=== PATIENT | female | born 1945 | race American Indian/Alaskan Native ===

== ENCOUNTER 2020-04-25 14:38 | Observation (INO) | payer MEDICARE ==
--- NOTE | 2020-04-25 15:00 | Event Note ---
ED Screening Note Date of service: 04/25/20 Time: 14:56 ED Screening Note: AMS and difficulty with speech x 9 am symptoms have resolved since +left sided headache hx of DM2 and HTN normal coordination and rhomberg on exam This initial assessment/diagnostic orders/clinical plan/treatment(s) is/are subject to change based on patients health status, clinical progression and re- assessment by fellow clinical providers in the ED. Further treatment and workup at subsequent clinical providers discretion. Patient/guardian urged not to elope from the ED as their condition may be serious if not clinically assessed and managed. Initial orders include: labs CT
[2020-04-25 15:44] LABS: Bilirubin,Urine NEG (Negative); Blood,Urine NEG (Negative); Color,Urine Straw (Yellow); Protein,Urine <15 mg/dL mg/dL (Negative); Urobilinogen,Urine < 2.0 mg/dL (<2.0); WBC,Urine < 1.0 /HPF (0.0-6.0)
[2020-04-25 15:46] LABS: Basophils # (Auto) 0.1 K/mm3 (0.0-0.1); Basophils % (Auto) 1.1 % (0.0-1.8); Eosinophils # (Auto) 0.1 K/mm3 (0.0-0.4); Eosinophils % (Auto) 2.1 % (0.0-4.3); Hematocrit 40.1 % (30.3-42.9); Lymphocytes # (Auto) 2.5 K/mm3 (1.2-5.4); Lymphocytes % (Auto) 37.7 % (13.4-35.0); Mean Corpuscular HGB Conc 32 % (30-34); Mean Corpuscular Volume 85 fl (79-97); Monocytes # (Auto) 0.5 K/mm3 (0.0-0.8); Monocytes % (Auto) 6.9 % (0.0-7.3); Platelet Count 189 K/mm3 (140-440); Red Blood Count 4.74 M/mm3 (3.65-5.03); Red Cell Distribution Width 15.4 % (13.2-15.2)
[2020-04-25 15:58] LABS: Alanine Aminotransferase 30 units/L (7-56); Albumin 4.8 g/dL (3.9-5); BUN/Creatinine Ratio 14; Blood Urea Nitrogen 11 mg/dL (7-17); Calcium 10.3 mg/dL (8.4-10.2); Hemolysis Index 15
[2020-04-25 16:10] LABS: INR 0.89 (0.87-1.13)
[2020-04-25 16:11] LABS: Partial Thromboplastin Time 27.7 Sec. (24.2-36.6)
--- NOTE | 2020-04-25 16:16 | Cat Scan Report ---
CT HEAD WITHOUT CONTRAST INDICATION : difficulty w/ speech and AMS x 9am, now resolved. TECHNIQUE: Axial imaging performed from the skull apex through the skull base without the use of con trast. Sagittal and coronal reformatted images. All CT scans at this location are performed using C T dose reduction for ALARA by means of automated exposure control. COMPARISON: None FINDINGS: Parenchyma: No acute intracranial hemorrhage or parenchymal abnormality. Mild cortical volume loss a nd mild chronic microangiopathy in the white matter are noted. No evidence for mass lesion or chronic infarct or extra-axial fluid collection. Ventricles: Ventricles are normal in size and appear symmetric. Bones: No acute osseous abnormality. Sinuses: Sinuses and mastoid air cells are clear. Soft tissues: Soft tissues including the orbits appear normal. IMPRESSION: No acute intracranial abnormality is appreciated. Age appropriate volume loss and chronic white matter changes. Signer Name: Jona Mcmanus Jr, MD Signed: 04/25/2020 4:11 PM Workstation Name: [id number]
--- NOTE | 2020-04-25 17:05 | Emergency Department Report ---
ED General Adult HPI - General Chief complaint: Neuro Symptoms/Deficit Stated complaint: ALTER MENTAL STATUS Time Seen by Provider: 04/25/20 14:55 Source: patient Mode of arrival: Ambulatory Limitations: No Limitations - History of Present Illness Initial comments: Patient presents to the emergency department with a chief complaint of difficulty with speaking this morning. Patient states that approximately 9:30 AM this morning she was talking to her daughter when she began to have slurred speech and then difficulty expressing her words. Patient denies any weakness with the symptoms as stated the last for approximately 15 minutes. Patient has a history of diabetes and hypertension. Patient denies chest pain, shortness of breath, or abdominal pain. -: Sudden Severity scale (0 -10): 0 Consistency: now resolved Improves with: none Worsens with: none Associated Symptoms: denies other symptoms Treatments Prior to Arrival: none - Related Data Allergies Allergy/AdvReac Type Severity Reaction Status Date / Time No Known Allergies Allergy Unverified 04/25/20 14:56 ED Review of Systems ROS: Stated complaint: ALTER MENTAL STATUS Other details as noted in HPI Constitutional: denies: chills, fever Eyes: denies: eye pain, eye discharge, vision change ENT: denies: ear pain, throat pain Respiratory: denies: cough, shortness of breath, wheezing Cardiovascular: denies: chest pain, palpitations Endocrine: no symptoms reported Gastrointestinal: denies: abdominal pain, nausea, diarrhea Genitourinary: denies: urgency, dysuria, discharge Musculoskeletal: denies: back pain, joint swelling, arthralgia Skin: denies: rash, lesions Neurological: denies: headache, weakness, paresthesias Psychiatric: denies: anxiety, depression Hematological/Lymphatic: denies: easy bleeding, easy bruising ED Past Medical Hx - Past Medical History Previous Medical History?: Yes Hx Hypertension: Yes Hx Diabetes: Yes - Surgical History Past Surgical History?: No - Social History Smoking Status: Never Smoker ED Physical Exam - General Limitations: No Limitations General appearance: alert, in no apparent distress - Head Head exam: Present: atraumatic, normocephalic - Eye Eye exam: Present: normal appearance, PERRL, EOMI - ENT ENT exam: Present: mucous membranes moist - Neck Neck exam: Present: normal inspection - Respiratory Respiratory exam: Present: normal lung sounds bilaterally. Absent: respiratory distress - Cardiovascular Cardiovascular Exam: Present: regular rate, normal rhythm. Absent: systolic murmur, diastolic murmur, rubs, gallop - GI/Abdominal GI/Abdominal exam: Present: soft, normal bowel sounds. Absent: distended, tenderness - Extremities Exam Extremities exam: Present: normal inspection - Back Exam Back exam: Present: normal inspection - Neurological Exam Neurological exam: Present: alert, oriented X3, CN II-XII intact. Absent: motor sensory deficit - Psychiatric Psychiatric exam: Present: normal affect, normal mood - Skin Skin exam: Present: warm, dry, intact, normal color. Absent: rash ED Course Vital Signs 04/25/20 04/25/20 04/25/20 14:58 15:30 16:21 Temperature 98.3 F Pulse Rate 79 72 Respiratory 18 16 Rate Blood Pressure 171/96 158/85 158/85 O2 Sat by Pulse 98 96 97 Oximetry ED Medical Decision Making - Lab Data Result diagrams: 04/25/20 15:15 04/25/20 15:15 Lab Results 04/25/20 04/25/20 04/25/20 Range/Units 15:15 15:15 15:43 WBC 6.5 (4.5-11.0) K/mm3 RBC 4.74 (3.65-5.03) M/mm3 Hgb 13.0 (10.1-14.3) gm/dl Hct 40.1 (30.3-42.9) % MCV 85 (79-97) fl MCH 27 L (28-32) pg MCHC 32 (30-34) % RDW 15.4 H (13.2-15.2) % Plt Count 189 (140-440) K/mm3 Lymph % (Auto) 37.7 H (13.4-35.0) % [place] % (Auto) 6.9 (0.0-7.3) % Eos % (Auto) 2.1 (0.0-4.3) % Baso % (Auto) 1.1 (0.0-1.8) % Lymph # (Auto) 2.5 (1.2-5.4) K/mm3 [place] # (Auto) 0.5 (0.0-0.8) K/mm3 Eos # (Auto) 0.1 (0.0-0.4) K/mm3 Baso # (Auto) 0.1 (0.0-0.1) K/mm3 Seg Neutrophils % 52.2 (40.0-70.0) % Seg Neutrophils # 3.4 (1.8-7.7) K/mm3 PT 12.2 (12.2-14.9) Sec. INR 0.89 (0.87-1.13) APTT 27.7 (24.2-36.6) Sec. Sodium 139 (137-145) mmol/L Potassium 4.3 (3.6-5.0) mmol/L Chloride 98.8 (98-107) mmol/L Carbon Dioxide 25 (22-30) mmol/L Anion Gap 20 mmol/L BUN 11 (7-17) mg/dL Creatinine 0.8 (0.6-1.2) mg/dL Estimated GFR > 60 ml/min BUN/Creatinine Ratio 14 % Glucose 115 H (65-100) mg/dL Calcium 10.3 H (8.4-10.2) mg/dL Total Bilirubin 0.50 (0.1-1.2) mg/dL AST 24 (5-40) units/L ALT 30 (7-56) units/L Alkaline Phosphatase 73 (35-129) units/L Troponin T < 0.010 (0.00-0.029) ng/mL Total Protein 8.2 (6.3-8.2) g/dL Albumin 4.8 (3.9-5) g/dL Albumin/Globulin Ratio 1.4 % Urine Color (Yellow) Urine Turbidity (Clear) Urine pH (5.0-7.0) Ur Specific [place] (1.003-1.030) Urine Protein (Negative) mg/dL Urine Glucose (UA) (Negative) mg/dL Urine Ketones (Negative) mg/dL Urine Blood (Negative) Urine Nitrite (Negative) Urine Bilirubin (Negative) Urine Urobilinogen (<2.0) mg/dL Ur Leukocyte Esterase (Negative) Urine WBC (Auto) (0.0-6.0) /HPF Urine RBC (Auto) (0.0-6.0) /HPF U Epithel Cells (Auto) (0-13.0) /HPF 10/20/20 Range/Units Unknown WBC (4.5-11.0) K/mm3 RBC (3.65-5.03) M/mm3 Hgb (10.1-14.3) gm/dl Hct (30.3-42.9) % MCV (79-97) fl MCH (28-32) pg MCHC (30-34) % RDW (13.2-15.2) % Plt Count (140-440) K/mm3 Lymph % (Auto) (13.4-35.0) % [place] % (Auto) (0.0-7.3) % Eos % (Auto) (0.0-4.3) % Baso % (Auto) (0.0-1.8) % Lymph # (Auto) (1.2-5.4) K/mm3 [place] # (Auto) (0.0-0.8) K/mm3 Eos # (Auto) (0.0-0.4) K/mm3 Baso # (Auto) (0.0-0.1) K/mm3 Seg Neutrophils % (40.0-70.0) % Seg Neutrophils # (1.8-7.7) K/mm3 PT (12.2-14.9) Sec. INR (0.87-1.13) APTT (24.2-36.6) Sec. Sodium (137-145) mmol/L Potassium (3.6-5.0) mmol/L Chloride (98-107) mmol/L Carbon Dioxide (22-30) mmol/L Anion Gap mmol/L BUN (7-17) mg/dL Creatinine (0.6-1.2) mg/dL Estimated GFR ml/min BUN/Creatinine Ratio % Glucose (65-100) mg/dL Calcium (8.4-10.2) mg/dL Total Bilirubin (0.1-1.2) mg/dL AST (5-40) units/L ALT (7-56) units/L Alkaline Phosphatase (35-129) units/L Troponin T (0.00-0.029) ng/mL Total Protein (6.3-8.2) g/dL Albumin (3.9-5) g/dL Albumin/Globulin Ratio % Urine Color Straw (Yellow) Urine Turbidity Clear (Clear) Urine pH 8.0 H (5.0-7.0) Ur Specific [place] 1.005 (1.003-1.030) Urine Protein <15 mg/dl (Negative) mg/dL Urine Glucose (UA) Neg (Negative) mg/dL Urine Ketones Neg (Negative) mg/dL Urine Blood Neg (Negative) Urine Nitrite Neg (Negative) Urine Bilirubin Neg (Negative) Urine Urobilinogen < 2.0 (<2.0) mg/dL Ur Leukocyte Esterase Neg (Negative) Urine WBC (Auto) < 1.0 (0.0-6.0) /HPF Urine RBC (Auto) 1.0 (0.0-6.0) /HPF U Epithel Cells (Auto) < 1.0 (0-13.0) /HPF - EKG Data -: EKG Interpreted by Me EKG shows normal: sinus rhythm Rate: normal - Radiology Data Radiology results: image reviewed - Medical Decision Making Results discussed with patient Critical care attestation.: If time is entered above; I have spent that time in minutes in the direct care of this critically ill patient, excluding procedure time. ED Disposition Clinical Impression: Aphasia, Slurred speech Disposition: DC-01 TO HOME OR SELFCARE Is pt being admited?: Yes Does the pt Need Aspirin: Yes Condition: Fair - Assessment Assessment Interval: Baseline - Level of Consciousness 1a. Level of Consciousness: alert/keenly responsive - LOC Questions 1b. LOC Questions: answers both correctly - LOC Command 1c. LOC Commands: performs tasks correctly - Best Gaze 2. Best Gaze: normal - Visual 3. Visual: no visual loss - Facial Palsy 4. Facial Palsy: normal symmetrical movement - Motor Arm 5a. Motor Arm Left: no drift 5b. Motor Arm Right: no drift - Motor Leg 6a. Motor Leg Left: no drift 6b. Motor Leg Right: no drift - Limb Ataxia 7. Limb Ataxia: absent - Sensory 8. Sensory: normal - Best Language 9. Best Language: no aphasia - Dysarthria 10. Dysarthria: normal - Extinction and Inattention 11. Extinction/Inattention: no abnormality - Scoring Total Score: 0 Stroke Severity: No Stroke Symptoms
[2020-04-25] MEDS ORDERED: ASPIRIN 81 MG TAB CHEW PO ONE (17:15)
[2020-04-25] MEDS ORDERED: ASPIRIN 81 MG TAB CHEW ONE (17:58)
[2020-04-25] MEDS ORDERED: ACETAMINOPHEN 325 MG TAB PO PRN (21:18)
[2020-04-25] MEDS ORDERED: oxyCODONE /ACETAMINOPHEN 5-325MG TAB PO PRN (21:18)
[2020-04-25] MEDS ORDERED: ONDANSETRON 4 MG/2 ML INJ IV PRN (21:18)
[2020-04-25] MEDS ORDERED: HYDROmorphone 1 MG/1 ML INJ IV PRN (21:18)
--- NOTE | 2020-04-25 21:18 | History and Physical Report ---
History of Present Illness Date of examination: 04/25/20 Date of admission: 04/25/20 17:16 Chief complaint: Slurred speech and near aphasia for 15 minutes which has resolved History of present illness: 74-year-old female with history of hypertension and diabetes comes in for difficulty speaking and near aphasia around 9:30 AM. Resolved spontaneously. Patient was no weakness in upper or lower extremities. Never had similar symptoms in the past. Patient is compliant with her blood pressure and diabetes medications. Slurred speech lasted about 15 minutes. No weakness or syncope. No fever or chills. No exposure to coronavirus. No exacerbating or relieving factors. - Past Medical History Previous Medical History?: Yes --Hypertension: Yes --Diabetes: Yes - Surgical History Past Surgical History?: No - Social History Smoking Status: Never Smoker Review of Systems ROS: Stated complaint: ALTER MENTAL STATUS Other details as noted in HPI Constitutional: denies: chills, fever Eyes: denies: eye pain, eye discharge, vision change ENT: denies: ear pain, throat pain Respiratory: denies: cough, shortness of breath, wheezing Cardiovascular: denies: chest pain, palpitations Endocrine: no symptoms reported Gastrointestinal: denies: abdominal pain, nausea, diarrhea Genitourinary: denies: urgency, dysuria, discharge Musculoskeletal: denies: back pain, joint swelling, arthralgia Skin: denies: rash, lesions Neurological: denies: headache, weakness, paresthesias Psychiatric: denies: anxiety, depression Hematological/Lymphatic: denies: easy bleeding, easy bruising Medications and Allergies Allergies Allergy/AdvReac Type Severity Reaction Status Date / Time No Known Allergies Allergy Unverified 04/25/20 14:56 Exam - Constitutional Vitals: Temp Pulse Resp BP Pulse Ox 98.3 F 84 20 162/91 93 04/25/20 14:58 04/25/20 19:00 04/25/20 19:00 04/25/20 19:00 04/25/20 19:00 General appearance: Present: no acute distress, well-nourished - EENT Eyes: Present: PERRL ENT: hearing intact, clear oral mucosa - Neck Neck: Present: supple, normal ROM - Respiratory Respiratory effort: normal Respiratory: bilateral: CTA - Cardiovascular Heart rate: 78 Rhythm: regular Heart Sounds: Present: S1 & S2. Absent: rub, click - Extremities Extremities: pulses symmetrical, No edema Peripheral Pulses: within normal limits - Abdominal General gastrointestinal: Present: soft, non-tender, non-distended, normal bowel sounds Female genitourinary: Present: normal - Rectal Rectal Exam: deferred - Integumentary Integumentary: Present: clear, warm, dry - Musculoskeletal Musculoskeletal: gait normal, strength equal bilaterally - Psychiatric Psychiatric: appropriate mood/affect, intact judgment & insight - Neurologic Neurologic: CNII-XII intact, moves all extremities - Allied Health Allied health notes reviewed: nursing, case management HEART Score - HEART Score History: Moderately suspicious Age: > 65 Risk factors: 1-2 risk factors Troponin: Troponin T < 0.010 ng/mL (0.00-0.029) 04/25/20 15:15 Troponin: < normal limit - Critical Actions Critical Actions: 4-6 pts:12-16.6% risk of adverse cardiac event. Should be admitted Results - Labs CBC & Chem 7: 04/25/20 15:15 04/25/20 15:15 Labs: Laboratory Last Values WBC 6.5 K/mm3 (4.5-11.0) 04/25/20 15:15 RBC 4.74 M/mm3 (3.65-5.03) 04/25/20 15:15 Hgb 13.0 gm/dl (10.1-14.3) 04/25/20 15:15 Hct 40.1 % (30.3-42.9) 04/25/20 15:15 MCV 85 fl (79-97) 04/25/20 15:15 MCH 27 pg (28-32) L 04/25/20 15:15 MCHC 32 % (30-34) 04/25/20 15:15 RDW 15.4 % (13.2-15.2) H 04/25/20 15:15 Plt Count 189 K/mm3 (140-440) 04/25/20 15:15 Lymph % (Auto) 37.7 % (13.4-35.0) H 04/25/20 15:15 [place] % (Auto) 6.9 % (0.0-7.3) 04/25/20 15:15 Eos % (Auto) 2.1 % (0.0-4.3) 04/25/20 15:15 Baso % (Auto) 1.1 % (0.0-1.8) 04/25/20 15:15 Lymph # (Auto) 2.5 K/mm3 (1.2-5.4) 04/25/20 15:15 [place] # (Auto) 0.5 K/mm3 (0.0-0.8) 04/25/20 15:15 Eos # (Auto) 0.1 K/mm3 (0.0-0.4) 04/25/20 15:15 Baso # (Auto) 0.1 K/mm3 (0.0-0.1) 04/25/20 15:15 Seg Neutrophils % 52.2 % (40.0-70.0) 04/25/20 15:15 Seg Neutrophils # 3.4 K/mm3 (1.8-7.7) 04/25/20 15:15 PT 12.2 Sec. (12.2-14.9) 04/25/20 15:43 INR 0.89 (0.87-1.13) 04/25/20 15:43 APTT 27.7 Sec. (24.2-36.6) 04/25/20 15:43 Sodium 139 mmol/L (137-145) 04/25/20 15:15 Potassium 4.3 mmol/L (3.6-5.0) 04/25/20 15:15 Chloride 98.8 mmol/L (98-107) 04/25/20 15:15 Carbon Dioxide 25 mmol/L (22-30) 04/25/20 15:15 Anion Gap 20 mmol/L 04/25/20 15:15 BUN 11 mg/dL (7-17) 04/25/20 15:15 Creatinine 0.8 mg/dL (0.6-1.2) 04/25/20 15:15 Estimated GFR > 60 ml/min 04/25/20 15:15 BUN/Creatinine Ratio 14 % 04/25/20 15:15 Glucose 115 mg/dL (65-100) H 04/25/20 15:15 Calcium 10.3 mg/dL (8.4-10.2) H 04/25/20 15:15 Total Bilirubin 0.50 mg/dL (0.1-1.2) 04/25/20 15:15 AST 24 units/L (5-40) 04/25/20 15:15 ALT 30 units/L (7-56) 04/25/20 15:15 Alkaline Phosphatase 73 units/L (35-129) 04/25/20 15:15 Troponin T < 0.010 ng/mL (0.00-0.029) 04/25/20 15:15 Total Protein 8.2 g/dL (6.3-8.2) 04/25/20 15:15 Albumin 4.8 g/dL (3.9-5) 04/25/20 15:15 Albumin/Globulin Ratio 1.4 % 04/25/20 15:15 Urine Color Straw (Yellow) 04/25/20 Unknown Urine Turbidity Clear (Clear) 04/25/20 Unknown Urine pH 8.0 (5.0-7.0) H 04/25/20 Unknown Ur Specific [place] 1.005 (1.003-1.030) 04/25/20 Unknown Urine Protein <15 mg/dl mg/dL (Negative) 04/25/20 Unknown Urine Glucose (UA) Neg mg/dL (Negative) 04/25/20 Unknown Urine Ketones Neg mg/dL (Negative) 04/25/20 Unknown Urine Blood Neg (Negative) 04/25/20 Unknown Urine Nitrite Neg (Negative) 04/25/20 Unknown Urine Bilirubin Neg (Negative) 04/25/20 Unknown Urine Urobilinogen < 2.0 mg/dL (<2.0) 04/25/20 Unknown Ur Leukocyte Esterase Neg (Negative) 04/25/20 Unknown Urine WBC (Auto) < 1.0 /HPF (0.0-6.0) 04/25/20 Unknown Urine RBC (Auto) 1.0 /HPF (0.0-6.0) 04/25/20 Unknown U Epithel Cells (Auto) < 1.0 /HPF (0-13.0) 04/25/20 Unknown Short CBC 04/25/20 Range/Units 15:15 WBC 6.5 (4.5-11.0) K/mm3 Hgb 13.0 (10.1-14.3) gm/dl Hct 40.1 (30.3-42.9) % Plt Count 189 (140-440) K/mm3 BMP 04/25/20 15:15 Sodium 139 Potassium 4.3 Chloride 98.8 Carbon Dioxide 25 BUN 11 Creatinine 0.8 Glucose 115 H Calcium 10.3 H Cardiac Enzymes 04/25/20 Range/Units 15:15 Troponin T < 0.010 (0.00-0.029) ng/mL Liver Function 04/25/20 Range/Units 15:15 Total Bilirubin 0.50 (0.1-1.2) mg/dL AST 24 (5-40) units/L ALT 30 (7-56) units/L Alkaline Phosphatase 73 (35-129) units/L Albumin 4.8 (3.9-5) g/dL Urine 04/25/20 Range/Units Unknown Urine Color Straw (Yellow) Urine pH 8.0 H (5.0-7.0) Ur Specific [place] 1.005 (1.003-1.030) Urine Protein <15 mg/dl (Negative) mg/dL Urine Glucose (UA) Neg (Negative) mg/dL - Imaging and Cardiology EKG: report reviewed CT Scan - head: report reviewed [place]/IV: IV Catheter Type [Right INT / Saline Lock Forearm] Assessment and Plan Advance Directives: Yes - Patient Problems (1) TIA (transient ischemic attack) Current Visit: Yes Status: Acute Plan to address problem: Classic history for TIA TIA work-up including MRI and carotid duplex scan and echocardiogram Neurology consult (2) Hypertension Current Visit: Yes Status: Chronic Qualifiers: Hypertension type: essential hypertension Qualified Code(s): I10 - Essential (primary) hypertension Plan to address problem: Patient's home medications are on the chart We will add antihypertensives as necessary (3) T2DM (type 2 diabetes mellitus) Current Visit: Yes Status: Chronic 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
[2020-04-25] MEDS ORDERED: SODIUM CHLORIDE 0.9% 1000 ML 1,000 ML IV SCH (21:30)
[2020-04-25] MEDS ORDERED: ASPIRIN EC 81 MG TAB PO SCH (22:00)
[2020-04-25] MEDS: CLOPIDOGREL 75 MG TAB PO SCH (22:55)
[2020-04-25] MEDS: FAMOTIDINE 20 MG TAB PO SCH (22:56)
[2020-04-25] MEDS: HEPARIN 5,000 UNIT/1 ML VIAL SUB-Q SCH (22:56)
[2020-04-25] MEDS: VALSARTAN 160MG TAB PO SCH (23:06)
[2020-04-26] MEDS ORDERED: INSULIN REGULAR, HUMAN 100 UNIT/ML 3ML VIAL SUB-Q SCH (01:15)
[2020-04-26 07:36] LABS: Chol/HDL Ratio 2.78 %
[2020-04-26] MEDS ORDERED: metFORMIN XR 500MG TAB PO SCH (08:00)
[2020-04-26] MEDS: INSULIN LISPRO 100 UNIT/ML VIAL 3 mL SUB-Q SCH ×3 (08:00→14:02)
--- NOTE | 2020-04-26 09:04 | Consultation ---
History of Present Illness Consult date: 04/26/20 Requesting physician: YEYO RUIZ Reason for Consult: TIA Chief complaint: Difficulty with speech transiently History of present illness: 74 yo female with htn, dm, lumbago, who presented with a transient 15-minute episode of difficulty getting the words out and with slurred speech. Currently, she is at her baseline neurologically. Notes a slight headache at the left frontotemporal region for the last few days that has resolved now. Notes she is visiting from out of town. Past History Past Medical History: diabetes, hypertension Medications and Allergies Allergies Allergy/AdvReac Type Severity Reaction Status Date / Time No Known Allergies Allergy Unverified 04/25/20 14:56 Active Meds: Active Medications Acetaminophen (Tylenol) 650 mg PO Q4H PRN PRN Reason: Pain MILD(1-3)/Fever >100.5/SHERIFF Aspirin (Halfprin Ec) 81 mg PO QDAY [facility] Last Admin: 04/25/20 22:55 Dose: 81 mg Documented by: Atorvastatin Calcium (Lipitor) 40 mg PO QHS [facility] Last Admin: 04/25/20 22:55 Dose: 40 mg Documented by: Clopidogrel Bisulfate (Plavix) 75 mg PO QDAY [facility] Last Admin: 04/25/20 22:55 Dose: 75 mg Documented by: Famotidine (Pepcid) 20 mg PO BID [facility] Last Admin: 04/25/20 22:56 Dose: 20 mg Documented by: Heparin Sodium (Porcine) (Heparin) 5,000 unit SUB-Q Q12HR [facility] Last Admin: 04/25/20 22:56 Dose: 5,000 unit Documented by: Hydromorphone HCl (Dilaudid) 0.5 mg IV Q3H PRN PRN Reason: Pain , Severe (7-10) Sodium Chloride (Nacl 0.9% 1000 Ml) 1,000 mls @ 75 mls/hr IV DIRECT [facility] Last Admin: 04/25/20 23:17 Dose: 75 mls/hr Documented by: Insulin Human Lispro (Humalog) 0 unit SUB-Q ACHS [facility]; Protocol Last Admin: 04/26/20 08:00 Dose: Not Given Documented by: Metformin HCl (Glucophage Xr) 1,000 mg PO QDDIAB [facility] Last Admin: 04/26/20 08:41 Dose: 1,000 mg Documented by: Ondansetron HCl (Zofran) 4 mg IV Q8H PRN PRN Reason: Nausea And Vomiting Oxycodone/Acetaminophen (Percocet 5/325) 1 tab PO Q6H PRN PRN Reason: Pain, Moderate (4-6) Sodium Chloride (Sodium Chloride Flush Syringe 10 Ml) 10 ml IV BID [facility] Last Admin: 04/25/20 22:57 Dose: 10 ml Documented by: Sodium Chloride (Sodium Chloride Flush Syringe 10 Ml) 10 ml IV PRN PRN PRN Reason: LINE FLUSH Valsartan (Diovan) 160 mg PO DAILY [facility] Last Admin: 04/25/20 23:06 Dose: 160 mg Documented by: Review of Systems All systems: negative (as per HPI;) Physical Examination - Vital Signs Vital Signs: Vital Signs Temp Pulse Resp BP Pulse Ox 98.3 F 79 18 171/96 98 04/25/20 14:58 04/25/20 14:58 04/25/20 14:58 04/25/20 14:58 04/25/20 14:58 - Additional Exam Additional Exam: Gen: nad, well-nourished; Head: normocephalic; Eyes: no gaze deviation; no ptosis; ENT: normal vocalization; CVS: warm and well-perfused; Pulm: no respiratory distress;; GI: non-distended, protuberant; Ext: no cyanosis at distal extremities; Skin: no acute rash at distal extremities; Heme: no pathologic ecchymosis at distal extremities; Neuro: alert, oriented to name, age, month, year, surroundings, no dysarthria, no aphasia, CN 2 - PERRL, visual cha intact, CN 3, 4, 6 - EOMI, CN 5 - facial sensation symmetric to light touch, CN 7 - facial movement symmetric, CN 8 - hearing grossly intact, CN 9, 10 - uvula midline, CN 11 - shrug symmetric, CN 12 - tongue midline; Motor - at least 4+/5 in all exts except 4/5 at distal LLE; Sensory - light touch symmetric, Cerebellar - fnf /hts intact, Gait - deferred; NIHSS (1a.) Level of Consciousness:0 (1b.) LOC Questions:0 (1c.) LOC Commands:0 (2.) Best Gaze: (3.) Visual:0 (4.) Facial Palsy:0 (5a.) Motor Arm, Left:0 (5b.) Motor Arm, Right:0 (6a.) Motor Leg, Left:1 (6b.) Motor Leg, Right:0 (7.) Limb Ataxia:0 (8.) Sensory:0 (9.) Best Language:0 (10.) Dysarthria:0 (11.) Extinction and Inattention:0 NIHSS Total Score: 0 Results - Laboratory Findings CBC and BMP: 04/25/20 15:15 04/25/20 15:15 Abnormal Lab Findings: Abnormal Labs 04/25/20 04/25/20 04/25/20 15:15 15:15 21:47 MCH 27 L RDW 15.4 H Lymph % (Auto) 37.7 H Glucose 115 H POC Glucose 210 H Hemoglobin A1c Calcium 10.3 H Urine pH 04/25/20 04/26/20 04/26/20 Unknown 06:40 07:41 MCH RDW Lymph % (Auto) Glucose POC Glucose 141 H Hemoglobin A1c 8.7 H Calcium Urine pH 8.0 H Assessment and Plan 74 yo female with htn, dm, who presented with a transient 15-minute episode of difficulty getting the words out and with slurred speech. 1. TIA: ASA 325 mg PO qday; Plavix 75 mg PO qday x 21 days; umremarkable report for MRI Brain w/o contrast; pending TTEcho & CUS results; confirm LDL/H gbA1C/TSH-T4, baseline CXR, EKG; telemetry, SBP goal 160-200 mmHg and DBP 80-100 mmHg for 24 more hours. Statin therapy for a goal LDL of 70, when patient passes swallow evaluation. PT/OT/ST/Swallow evaluation. Long-term risk-factor modification, including a strict diet/exercise regimen for secondary stroke prophylaxis. 2. Hypertension - goal SBP 160-200 mmHg and DBP 80-200 mmHg for 24 more hours. 3. Diabetes Mellitus - maintain euglycemia. 4. Dyslipidemia - current LDL of 72; goal LDL of 70. 5. Lumbago - recommend outpatient evaluation by Neurology (in 4-6 weeks) w/ noted LLE weakness. 6. If TTE/CUS are unremarkable, patient is cleared by Neurology. Followup with Neurology in 4-6 weeks. David Tiwari MD Neurology
[2020-04-26] MEDS ORDERED: amLODIPine 10 MG TAB PO SCH (11:00)
[2020-04-26] MEDS ORDERED: LISINOPRIL 10 MG TAB PO SCH (11:00)
[2020-04-26] MEDS ORDERED: ASPIRIN EC 325 MG TAB PO SCH (11:00)
--- NOTE | 2020-04-26 11:00 | Magnetic Resonance Report ---
MRI BRAIN 04/26/2020 INDICATION / CLINICAL INFORMATION: Speech disturbance. Stroke.. TECHNIQUE: Multiplanar, multisequence MR images of the brain were obtained. COMPARISON: CT brain 04/25/2020 FINDINGS: BRAIN / INTRACRANIAL CONTENTS: Unenhanced MR images of the brain demonstrate no evidence of acute int racranial abnormality. Ventricles and sulci are normal in size and shape for a patient of this age. Extensive chronic white matter T2 weighted hyperintensities are present throughout the cerebral hemis pheric white matter. Prominent perivascular spaces are present throughout the subcortical structures of the cerebral hemispheres bilaterally. There is no evidence of acute ischemic injury, hemorrhage, or mass. There are no abnormal extra-axial fluid collections. EXTRACRANIAL: Unremarkable CRANIOCERVICAL JUNCTION: No significant abnormality. VASCULAR FLOW-VOIDS: No significant abnormality. IMPRESSION: No acute abnormality. Chronic and age-related changes. Signer Name: Cristopher Peguero MD Signed: 04/26/2020 10:56 AM Workstation Name: [id number]
[2020-04-26 12:26] VITALS: BP 174/94
[2020-04-26] MEDS: VALSARTAN 160MG TAB PO SCH (13:06)
[2020-04-26] MEDS: HEPARIN 5,000 UNIT/1 ML VIAL SUB-Q SCH (13:08)
[2020-04-26] MEDS: FAMOTIDINE 20 MG TAB PO SCH (13:09)
[2020-04-26] MEDS: CLOPIDOGREL 75 MG TAB PO SCH (13:09)
--- NOTE | 2020-04-26 14:14 | Vascular Lab Report ---
Bilateral Carotid Doppler Ultrasound INDICATION : stroke TECHNIQUE: Grayscale and color Doppler imaging performed through the neck. COMPARISON: None FINDINGS: Right: There is no significant atherosclerotic disease. Peak systolic velocity in the CCA is 67 cm/ s. Peak systolic velocity in the proximal ICA is 81 cm/s with end-diastolic velocity of 30 cm/s. ICA to CCA ratio is less than 2. There is antegrade flow in the ECA and the vertebral artery. Left: There is no significant atherosclerotic disease. Peak systolic velocity in the CCA is 62 cm/s. Peak systolic velocity in the proximal ICA is 67 cm/s with end-diastolic velocity of 24 cm/s. ICA to CCA ratio is less than 2. There is antegrade flow in the ECA and the vertebral artery. IMPRESSION: No hemodynamically significant stenosis by NASCET criteria. Signer Name: Jr Antunez MD Signed: 04/26/2020 2:09 PM Workstation Name: [id number]
--- NOTE | 2020-04-26 14:26 | Discharge Summary ---
Providers - Providers Date of Admission: 04/25/20 17:16 Date of discharge: 04/26/20 Attending physician: LISSET MACHADO 04/25/20 Consult to Physician [CONS] Routine Comment: Consulting Provider: AXEL SOLANO Physician Instructions: Reason For Exam: TIA 04/25/20 21:24 Occupational Therapy Evaluate and Treat [CONS] Routine Comment: Reason For Exam: Neuro deficits Physical Therapy Evaluation and Treat [CONS] Routine Comment: Reason For Exam: Neuro deficits Primary care physician: [employer] ENGINEER Hospitalization Condition: Fair Hospital course: 74-year-old female with history of hypertension and diabetes comes in for difficulty speaking and near aphasia around 9:30 AM on 04/25/20 Which resolved spontaneously. Slurred speech lasted about 15 minutes. No weakness or syncope. By the time patient presented to ER she was at her baseline. Patient was admitted to the hospital with acute stroke protocol, tele-neurology was consulted in the ER. Patient was not found to be a candidate for TPA. Patient was placed on antiplatelets, statin and allowed for permissive hypertension. CT head in the ER did not show any acute abnormality. Patient was further evaluated with carotid Doppler, MRI of the brain, 2D echo. MRI of the brain showed no acute process, carotid Doppler showed no acute stenosis, 2D echo had preserved EF. PT OT evaluated the patient and recommended no home need. Neurology further evaluated the patient and recommended to continue current management and further outpatient follow-up. Patient was then discharge home in stable condition. Discharge diagnosis: TIA Hypertension Diabetes mellitus type 2 Obesity Disposition: [id number] HOME UNDER HOME [facility] Time spent for discharge: 34 minutes Core Measure Documentation - Palliative Care Palliative Care/ Comfort Measures: Not Applicable - Core Measures Any of the following diagnoses?: stroke - Stroke Discharge Requirements Statin for LDL = or >70 mg/dl on DC: Yes Anticoag for atrial fib/atrial flutter: Not Applicable Antithrombotic for ischemic stroke: Yes Exam - Physical Exam Narrative exam: GENERAL: well-developed and well-nourished elderly female lying on bed appeared to be in no discomfort. HEENT: Normocephalic. Atraumatic. No conjunctival congestion or icterus. Patient has moist mucous membranes. NECK: Supple. Trachea midline. CHEST/LUNGS: Clear to auscultated bilaterally, breathing nonlabored. No wheezes crackles or rhonchi. HEART/CARDIOVASCULAR: Regular in rate and rhythm. S1 and S2 positive. ABDOMEN: Abdomen is soft, nontender. Patient has normal bowel sounds. SKIN: There is no rash. Warm and dry. NEURO: No focal motor deficit. Follows command. MUSCULOSKELETAL: No joint effusion or tenderness. EXTRIMITY: No edema, no cyanosis or clubbing. PSYCH: Cooperative. - Constitutional Vitals: Temp Pulse Resp BP Pulse Ox 98.4 F 73 20 164/94 99 04/26/20 12:25 04/26/20 13:06 04/26/20 12:25 04/26/20 13:06 04/26/20 12:25 Plan Activity: advance as tolerated Weight Bearing Status: Non-Weight Bearing Diet: low fat, low salt Follow up with: PRIMARY CARE, [Primary Care Provider] - 7 Days Prescriptions: AtorvaSTATin [Lipitor] 40 mg PO QHS #30 tablet amLODIPine 10 mg PO QDAY #30 tablet carvediloL [Coreg] 6.25 mg PO BID #60 tablet Valsartan [Diovan] 160 mg PO DAILY #30 tablet Aspirin EC [Ecotrin] 325 mg PO QDAY #30 tablet metFORMIN XR [Glucophage XR] 1,000 mg PO QDDIAB #60 tablet Clopidogrel [Plavix] 75 mg PO QDAY #20 tablet
[2020-04-26] MEDS ORDERED: hydrALAZINE 25 MG TAB PO SCH (15:00)
[2020-04-26] MEDS ORDERED: carvediloL 6.25 MG TAB PO SCH (15:00)
== END 2020-04-26 17:45 | disposition home health service (06) ==
LOC: ED 14:38 → 3A 17:16
PROVIDERS: ADMIT Internal Medicine; ATTEND Internal Medicine
DX: G45.9 Transient cerebral ischemic attack, unspecified (principal); R41.82 Altered mental status, unspecified; I10 Essential (primary) hypertension; E11.9 Type 2 diabetes mellitus without complications; E78.5 Hyperlipidemia, unspecified; Z79.899 Other long term (current) drug therapy
CPT/HCPCS: 36415; 70450; 70551; 80053; 80061; 81001; 82962; 83036; 84484; 85025; 85610; 85730; 93005; 93306; 93880; 96360; 96361; 96372; 97162; 99285; A9270; G0378; J1644; J7030; J1815